=== PATIENT | female | born 1950 | race Caucasian/White ===

== ENCOUNTER 2025-06-20 15:35 | Emergency (ER) | payer MEDICARE, OTHER ==
[~2025-06-20] VITALS: Ht 152.4 cm; Wt 58.5 kg
[2025-06-20 15:37] VITALS: BP 180/90; TEMP 98.8; O2SAT 96
[2025-06-20] MEDS: LIDOCAINE W/EPINEPHrine 1% 20 ML VIAL SC ONE (17:50)
[2025-06-20] MEDS: TETANUS/DIPHTH/ACEL. PERTUSSIS 0.5 ML SYR IM.IMMUN ONE (18:28)
[2025-06-20] MEDS ORDERED: AMOX875T2 PO (18:32)
[2025-06-20] MEDS ORDERED: AUGMENTIN 875 MG TAB PO ONE (18:35)
== END 2025-06-20 18:41 | disposition home or self-care (01) ==
LOC: M ED 15:35
DX: S01.511A Laceration without foreign body of lip, initial encounter (principal); W54.0XXA Bitten by dog, initial encounter; I10 Essential (primary) hypertension; I25.2 Old myocardial infarction; F10.10 Alcohol abuse, uncomplicated; E78.5 Hyperlipidemia, unspecified; Z88.8 Allergy status to other drugs, medicaments and biological substances; Y92.009 Unspecified place in unspecified non-institutional (private) residence as the place of occurrence of the external cause; Y93.89 Activity, other specified; Y99.9 Unspecified external cause status; Z23 Encounter for immunization; Z79.2 Long term (current) use of antibiotics